=== PATIENT | male | born 1950 | race Two or more races ===

== ENCOUNTER 2024-05-18 10:59 | Emergency (ER) | payer OTHER ==
[~2024-05-18] VITALS: Ht 175.3 cm; Wt 81.6 kg
[2024-05-18] MEDS ORDERED: NEURONTIN300 MG (11:26)
[2024-05-18] MEDS ORDERED: AMLODIPINE BESYL5 MG (11:26)
[2024-05-18] MEDS ORDERED: OMEGA-31000 MG (11:26)
[2024-05-18] MEDS ORDERED: ADULT LOW DOSE81 M1 (11:26)
== END 2024-05-18 13:09 | disposition home or self-care (01) ==
LOC: ER 11:01
DX: M25.512 Pain in left shoulder (principal)